=== PATIENT | male | born 2000 | race Caucasian/White ===

== ENCOUNTER 2021-08-02 10:00 | Emergency (ER) | payer OTHER, SELFPAY ==
[2021-08-02 10:15] VITALS: BP 135/67; PULSE 74; RESP 18; TEMP 36.7; O2SAT 100
--- NOTE | 2021-08-02 10:49 | ED.BACK ---
HPI - Back Pain/Injury General Chief Complaint: Back Pain/Injury Stated Complaint: Upper Back Pain Source: patient and RN notes reviewed Mode of arrival: ambulatory Limitations: no limitations History of Present Illness HPI Narrative: Will is a 20-year-old male patient who ambulated into the [facility] today. Patient states he has a history of lower back pain. Patient states it usually happens after running and doing repeats. Patient states over the last 2 days his left lower back has become tight and has increased pain when bending forward. Patient has not used any ice or heat at home. MD elicited complaint: back pain Related Data Home Medications Medication Instructions Recorded Confirmed No Home Medications 08/02/21 08/02/21 Allergies Allergy/AdvReac Type Severity Reaction Status Date / Time No Known Allergies Allergy Verified 08/02/21 10:24 Review of Systems Review of Systems: CONSTITUTIONAL: Denies body aches, fever, chills, or sweats. EYES: Denies visual changes, redness, or discharge. ENT: Denies rhinorrhea, congestion, sore throat, or otalgia. CARDIOVASCULAR: Denies chest pain, palpitations, or edema. RESPIRATORY: Denies cough or dyspnea. GASTROINTESTINAL: Denies abdominal pain, nausea, vomiting, or diarrhea. GENITOURINARY: Denies dysuria or hematuria. SKIN: Denies rash, itching, or wounds. MUSCULOSKELETAL: + back pain, denies joint pain, or myalgia. Patient has pain with flexion and extension. Patient has pain with palpation to the left lumbar area no vertebral point tenderness NEUROLOGIC: Denies headache, numbness, tingling, or weakness. PSYCH: Denies depression or anxiety. All systems reviewed & are unremarkable except as noted in HPI and below Exam Narrative: GENERAL: Well-appearing, well-nourished, and in no acute distress. HEAD: Normocephalic, atraumatic. EYES: EOMI. No redness or drainage. Conjunctivae normal. ENT: Mucous membranes pink and moist. Nares clear. No rhinorrhea. . NECK: Normal AROM. Supple. No lymphadenopathy. MUSCULOSKELETAL: No bony tenderness. There were no vertebral point tenderness. Patient has pain with palpation to the left lower lumbar area. EXTREMITIES: Normal range of motion. No edema. SKIN: Warm, dry, no rash. Capillary refill normal. Normal skin turgor. NEURO: No focal deficits. Alert and oriented x3. Gait steady. PSYCH: Normal affect. No signs of depression or anxiety. Course Vital Signs Vital signs: Vital Signs Temperature 36.7 C 08/02/21 10:15 Pulse Rate 74 08/02/21 10:15 Respiratory Rate 18 08/02/21 10:15 Blood Pressure 135/67 08/02/21 10:15 Pulse Oximetry 100 08/02/21 10:15 Temperature 36.7 C 08/02/21 10:15 Pulse Rate 74 08/02/21 10:15 Respiratory Rate 18 08/02/21 10:15 Blood Pressure 135/67 08/02/21 10:15 Pulse Oximetry 100 08/02/21 10:15 Reviewed. Pt has been instructed to follow up with her PCP regarding her elevated blood pressure today. MDM - Back Pain/Injury MDM Narrative Medical decision making narrative: Patient has pain to the lumbar area with palpation. No vertebral point tenderness. Patient has no numbness or tingling. Patient has full control of bowel and bladder. Differential Diagnosis Differential diagnosis: Likely lumbar radiculopathy, sciatica and strain of lumbar region Critical Care Time Critical Care Time Critical Care Time: No Discharge Plan Discharge Clinical Impression: Strain of lumbar region Qualifiers: Encounter type: initial encounter Qualified Code(s): S39.012A - Strain of muscle, fascia and tendon of lower back, initial encounter Patient Disposition: Home, Self-Care Condition: Stable Instructions: Antibiotic Form, Low Back Strain (ED) Additional Instructions: Use ice or heat to the area. May use [id number] muscle rubs. Follow-up with your primary care physician for increased pain or no improvement in 3 to 5 days. Go to the emergency depart
== END 2021-08-02 11:00 | disposition home or self-care (01) ==
PROVIDERS: Emergency Provider Nurse Practitioner Family
DX: S39.012A Strain of muscle, fascia and tendon of lower back, initial encounter (principal); X58.XXXA Exposure to other specified factors, initial encounter
CPT/HCPCS: 99213; G0463

== ENCOUNTER 2022-03-15 08:34 | Emergency (ER) | payer OTHER, SELFPAY ==
--- NOTE | ~2022-03-15 | CT_ITS ---
EXAMINATION: CT abdomen pelvis w con DATE: 03/15/2022 09:41 INDICATION: Right lower quadrant abdominal pain. TECHNIQUE: Computed tomography (CT) of the abdomen and pelvis was performed with 100 mL Omnipaque 300 intravenous contrast. Automated exposure control and iterative reconstruction technique were employe d. The dose-length product was 176.87 mGy-cm. COMPARISON: None. FINDINGS: The visualized portions of the lung bases are clear without pneumonia or pleural effusion. The heart size is normal. No pericardial effusion. The liver, gallbladder, spleen, pancreas, adrenal glands, and kidneys are normal. The appendix measures 8 mm in diameter. There is gas in the lumen of the appendix. There is wall thickening of the terminal ileum with surrounding fat stranding. There is mild ileocolic lymphadenopathy. There is trace pelvic ascites. The bones are unremarkable. IMPRESSION: 1. Terminal ileitis, which may be infection or Crohn disease. 2. Mild ileocolic lymphadenopathy, likely reactive. Reviewed, dictated and finalized at location B.
[2022-03-15 08:40] VITALS: BP 131/87; PULSE 81; RESP 16; TEMP 36.6; O2SAT 100
[2022-03-15 08:53] LABS: Basophils Absolute Auto 0.1 K/mm3 (0.0-0.1); Basophils Percent Auto 0.7 % (0.2-1.2); Eosinophils Absolute Auto 0.4 K/mm3 (0-0.3); Eosinophils Percent Auto 3.3 % (0-4.4); Hematocrit 39.5 % (42.0-52.0); Hemoglobin 13.1 g/dL (14.0-18.0); Immature Granulocyte Absolute 0.03 K/mm3 (0.00-0.031); Immature Granulocyte Percent A 0.2 % (0-0.5); Lymphocytes Percent Auto 9.9 % (18.3-44.2); Mean Corpuscular HGB Conc 33.2 g/dl (32-36); Mean Corpuscular Hemoglobin 28.7 pg (26-34); Mean Corpuscular Volume 86.4 fl (80-100); Mean Platelet Volume 9.8 fl (7.4-10.4); Monocytes Absolute Auto 1.2 K/mm3 (0.1-0.6); Monocytes Percent Auto 9.6 % (2.6-8.5); Neutrophils Absolute Auto 9.2 K/mm3 (1.3-6.7); Neutrophils Percent Auto 76.3 % (45.5-73.1); Platelet Count Result 366 k/mm3 (150-375); Red Blood Count 4.57 M/mm3 (4.6-6.20); Red Cell Distribution Width 12.4 % (11.5-14.5); White Blood Count 12.1 K/mm3 (4.5-10.0)
[2022-03-15 09:07] LABS: Alanine Aminotransferase 13 U/L (6-50); Albumin Level 4.1 g/dL (3.5-5.1); Alkaline Phosphatase 84 U/L (38-126); Anion Gap 6 mmol/L (8-16); Aspartate Amino Transferase 19 U/L (17-59); Bilirubin,Total 0.3 mg/dL (0.2-1.3); Blood Urea Nitrogen 9 mg/dL (9-20); Calcium 9.1 mg/dL (8.4-10.2); Carbon Dioxide 30 mmol/L (22-30); Chloride 101 mmol/L (98-107); Estimated CRCL calculation 109 ml/min; Estimated Glomerular Filt Rate > 60; Glucose 120 mg/dL (65-110); Lipase 62 U/L (23-300); Potassium 4.4 mmol/L (3.4-5.0); Sodium 137 mmol/L (137-145)
[2022-03-15] MEDS: SODIUM CHLORIDE 0.9% IV 1,000 ML 999 ML IV CONT (09:44)
--- NOTE | 2022-03-15 09:44 | ED.GENADULT ---
HPI - General Adult General Chief complaint: Abdominal Pain Stated complaint: diffuse abd pain Time Seen by Provider: 03/15/22 09:00 Source: patient Mode of arrival: ambulatory Limitations: no limitations History of Present Illness HPI narrative: 21-year-old male presents today with complaints of intermittent abdominal pain that started last but really got worse Sunday. Patient describes the pain as cramping in nature mostly to the umbilical region. But has noted some tenderness to the right lower quadrant nonetheless to the left lower quadrant. Patient denies fever, urinary complaints, has endorsed nausea, vomiting, and had diarrhea this morning but patient took a laxative yesterday because he thought he might be constipated. Denies history of abdominal surgery. Patient states alleviating factors lying on the side in position. Aggravating factors trying to get up and laying on back. Related Data Home Medications Medication Instructions Recorded Confirmed No Home Medications 08/02/21 03/15/22 Allergies Allergy/AdvReac Type Severity Reaction Status Date / Time No Known Allergies Allergy Verified 03/15/22 08:45 Review of Systems Review of Systems: CONSTITUTIONAL: Denies fever, chills, or sweats. EYES: Denies visual changes, redness, or discharge. ENT: Denies rhinorrhea, congestion, sore throat, or otalgia. CARDIOVASCULAR: Denies chest pain, palpitations, or edema. RESPIRATORY: Denies cough or dyspnea. GASTROINTESTINAL: Abdominal pain with nausea and intermittent vomiting. GENITOURINARY: Denies dysuria or hematuria. SKIN: Denies rash or itching. MUSCULOSKELETAL: Denies back pain, joint pain, or myalgia. NEUROLOGIC: Denies headache, numbness, dizziness, or weakness. PSYCHIATRIC: Denies anxiety or depression. Exam Narrative: GENERAL: Well-appearing, well-nourished, and in no acute distress. HEAD: Normocephalic, atraumatic. EYES: PERRLA and EOMI. ENT: Nares clear, no rhinorrhea or epistaxis. Mucous membranes moist. Oropharynx without tonsillar hypertrophy exudate or other lesions. Bilateral TMs pearly thomas nonbulging NECK: Supple. No adenopathy or masses. No carotid bruits or JVD CHEST: Clear to auscultation. No respiratory distress. No wheezes rales or rhonchi HEART: Regular rate and rhythm. No murmur heard. Normal peripheral pulses. ABDOMEN: Positive McBurney sign, negative for rebound tenderness, abdomen is soft, nondistended, normal active bowel sounds. EXTREMITIES: Normal range of motion. No edema. SKIN: Warm, dry, no rash. NEURO: No focal deficits. Alert and oriented x3. PSYCH: Normal mood and affect. Course Course Emergency Course: Patient aware labs and CT results. Patient aware of need for follow-up with GI and possible further work-up. Patient in agreement with plan of care and ready for discharge. Consultations Consultation #1: Dr Delgado called (GI). Patient to follow up as outpatient. Date: 03/15/22 Time: 11:31 Vital Signs Vital signs: Vital Signs Temperature 36.6 C 03/15/22 08:40 Pulse Rate 81 03/15/22 08:40 Respiratory Rate 16 03/15/22 08:40 Blood Pressure 131/87 03/15/22 08:40 Pulse Oximetry 100 03/15/22 08:40 Oxygen Delivery Room Air 03/15/22 08:40 Temperature 36.6 C 03/15/22 08:40 Pulse Rate 77 03/15/22 11:43 Respiratory Rate 18 03/15/22 11:43 Blood Pressure 115/75 03/15/22 11:43 Pulse Oximetry 100 03/15/22 11:43 Oxygen Delivery Room Air 03/15/22 08:40 Medical Decision Making MDM Narrative Medical decision making narrative: 21-year-old male HPI as noted. White count 12.1 hemoglobin 13.1 sodium 137 potassium 4.4 GFR greater than 60 and urine without signs of infection. Patient afebrile, BP 115/75, pulse 77, respiratory rate 18, O2 sat 100% on room air. No signs of infection/sepsis. CT shows terminal ileitis infection versus Crohn's. Further work-up needed by GI. Patient currently stable plan to follow-up with GI
[2022-03-15 09:54] LABS: Appearance Urine Clear (Clear); Bilirubin Urine Negative (Negative); Blood Urine Negative (Negative); Color Urine Yellow (Yellow); Glucose Urine UA Negative (Negative); Ketones Urine Negative (Negative); Leukocyte Esterase Ur Negative LEU/UL (Negative); Nitrate Urine Negative (Negative); Protein Urine Negative (Negative); Urobilinogen Urine 0.2 mg/dL (<2.0); pH Urine 8.5 (5.0-9.0)
[2022-03-15 10:23] LABS: Add Urine Microscopic? NO
[2022-03-15 11:43] VITALS: BP 115/75; PULSE 77; RESP 18; O2SAT 100
== END 2022-03-15 11:44 | disposition home or self-care (01) ==
PROVIDERS: Emergency Medicine; Emergency Provider Nurse Practitioner Family
DX: R10.9 Unspecified abdominal pain (principal); K50.00 Crohn's disease of small intestine without complications
CPT/HCPCS: 36415; 74177; 80053; 81003; 83690; 85025; 96360; 99284; J7030; Q9967

== ENCOUNTER 2022-03-16 09:53 | Outpatient (CLI) | payer OTHER, SELFPAY ==
[2022-03-16 10:09] LABS: Hematocrit 36.8 % (42.0-52.0); Hemoglobin 12.4 g/dL (14.0-18.0); Mean Corpuscular HGB Conc 33.7 g/dl (32-36); Mean Corpuscular Hemoglobin 29.2 pg (26-34); Mean Corpuscular Volume 86.6 fl (80-100); Mean Platelet Volume 9.6 fl (7.4-10.4); Platelet Count Result 366 k/mm3 (150-375); Red Blood Count 4.25 M/mm3 (4.6-6.20); Red Cell Distribution Width 12.3 % (11.5-14.5); White Blood Count 10.7 K/mm3 (4.5-10.0)
[2022-03-16 10:24] LABS: Alanine Aminotransferase 12 U/L (6-50); Albumin Level 3.9 g/dL (3.5-5.1); Alkaline Phosphatase 78 U/L (38-126); Anion Gap 8 mmol/L (8-16); Aspartate Amino Transferase 16 U/L (17-59); Bilirubin,Total 0.2 mg/dL (0.2-1.3); Blood Urea Nitrogen 8 mg/dL (9-20); CRP 5.4 mg/dL (<1.0); Calcium 8.8 mg/dL (8.4-10.2); Carbon Dioxide 27 mmol/L (22-30); Chloride 103 mmol/L (98-107); Estimated Glomerular Filt Rate > 60; Glucose 114 mg/dL (65-110); Potassium 4.1 mmol/L (3.4-5.0); Sodium 138 mmol/L (137-145)
[2022-03-16 10:51] LABS: Iron 35 ug/dL (49-181)
[2022-03-16 10:57] LABS: Erythrocyte Sedimentation Rate 50 mm/hr (0-20)
[2022-03-16 11:01] LABS: Percent Iron Saturation 15 % (20-50)
[2022-03-16 11:26] LABS: Folic Acid 5.1 ng/mL (2.76->20)
[2022-03-16 22:32] LABS: Toxigenic C. Diff NEGATIVE (NEGATIVE)
[2022-03-21 21:05] LABS: Calprotectin, Stool 2710 mcg/g
== END 2022-03-16 09:54 | disposition home or self-care (01) ==
PROVIDERS: Visit Provider Nurse Practitioner
DX: D64.9 Anemia, unspecified (principal); R10.31 Right lower quadrant pain; R93.3 Abnormal findings on diagnostic imaging of other parts of digestive tract; K50.00 Crohn's disease of small intestine without complications
CPT/HCPCS: 36415; 80053; 82607; 82728; 82746; 83540; 83550; 83993; 85027; 85652; 86140; 87045; 87177; 87209; 87427; 87493

== ENCOUNTER 2022-03-24 21:01 | Emergency (ER) | payer OTHER, SELFPAY ==
--- NOTE | ~2022-03-24 | CT_ITS ---
EXAMINATION: CT abdomen pelvis w con INDICATION: Right lower quadrant pain TECHNIQUE: Computed tomographic images of the abdomen and pelvis were obtained after the administrati on of 100 cc of Omnipaque 300 intravenous contrast. The dose-length product (DLP) was 197.80 mGy-cm. Automated exposure control and iterative reconstruction technique were employed. COMPARISON: 03/15/2022 FINDINGS: The lung bases are clear. The heart size is normal. The liver, spleen, pancreas, gallbladde r, and adrenal glands are normal. The kidneys are unremarkable. Again seen are wall thickening and mu cosal enhancement of the terminal ileum without significant change the visualized osseous structures are unremarkable.. There are additional short segments of circumferential wall thickening and mucosal enhancement (skip lesions) of the terminal ileum. The appendix is normal. There is no free intraperi toneal gas. IMPRESSION: 1. Terminal ileitis without significant change, consistent with Crohn disease or possibly infection. Reviewed, dictated and finalized at location F. IMPRESSION: 1. Terminal ileitis without significant change, consistent with Crohn disease o r possibly infection.
[2022-03-24 21:04] VITALS: BP 132/78; PULSE 94; RESP 18; TEMP 37.3; O2SAT 100
--- NOTE | 2022-03-24 21:26 | ED.ABDPAIN ---
HPI - Abdominal Pain General Chief Complaint: Abdominal Pain Stated Complaint: abd pain Time Seen by Provider: 03/24/22 21:15 History of Present Illness HPI narrative: Patient is a 19-year-old male here for evaluation of intermittent, crampy lower abdominal pain 10 days. The pain is not worse after eating and is relieved by the position. Reports nausea and low grade fevers but no vomiting. He had a loose stool this morning but does note intermittent issues with constipation since the pain developed. Patient was evaluated in the ED upon symptom onset and was found to have terminal ileitis on his CT scan. He followed-up with GI in clinic and was found to have elevated fecal calprotectin levels. Patient was put on Cipro and Flagyl for the symptoms with good improvement. Unfortunately, he developed a rash after starting these antibiotics so he stopped them 2 days ago. The pain returned today. He has not yet scheduled his colonoscopy. Denies blood in stool, weight changes, headaches, rashes, other complaints. Related Data Allergies Allergy/AdvReac Type Severity Reaction Status Date / Time No Known Allergies Allergy Verified 03/24/22 21:19 Review of Systems Review of Systems: Gen.: Reports fevers. Denies chills Eyes: Denies eye pain or visual change ENT: Denies congestion Respiratory: Denies shortness of breath or cough CV: Denies chest pain or palpitations GI: Reports abdominal pain, nausea, diarrhea. Denies emesis denies burning, urgency, frequency or hematuria Musculoskeletal: Denies back pain or muscle pain Neuro: Denies numbness, tingling, weakness or focal weakness Skin: Denies rash Except as documented, all other systems reviewed and negative [facility] Past Medical History Medical History Abnormal digestive system diagnostic imaging Normocytic anemia RLQ abdominal pain Terminal ileitis of small intestine Social History Social History Smoking status: Current every day smoker (vapes) Exam Narrative: APPEARANCE: No acute distress, nontoxic, resting in bed EYES: EOMI HEENT: Normocephalic, atraumatic, OMM RESPIRATORY: No respiratory distress Clear to auscultation bilaterally with no rhonchi wheezing or rales. CARDIOVASCULAR: Regular rate and rhythm without murmurs rubs or gallops. ABDOMINAL: Hyperactive bowel sounds. Tender to palpation in RLQ. No rebound or guarding MUSCULOSKELETAL: Moves all extremities. No clubbing, cyanosis or edema. NEURO: Awake and alert. Following commands, speech normal, no focal deficits SKIN: Warm, dry. No rashes lesions or abrasions PSYCHIATRIC: Normal affect/mood Course Vital Signs Vital signs: Vital Signs Temperature 99.1 F 03/24/22 21:04 Pulse Rate 94 03/24/22 21:04 Respiratory Rate 18 03/24/22 21:04 Blood Pressure 132/78 03/24/22 21:04 Pulse Oximetry 100 03/24/22 21:04 Oxygen Delivery Room Air 03/24/22 21:04 Temperature 99.1 F 03/24/22 21:04 Pulse Rate 87 03/24/22 23:25 Respiratory Rate 18 03/24/22 23:25 Blood Pressure 114/77 03/24/22 23:25 Pulse Oximetry 99 03/24/22 23:25 Oxygen Delivery Room Air 03/24/22 21:04 MDM - Abdominal Pain MDM Narrative Medical decision making narrative: 21 year old male here for evaluation of rlq crampy abdominal pain, diarrhea and low grade fevers at home. Patient being worked up for IBD as outpatient given findings of terminal ileitus on old CT scan and leukocytosis. Fecal calprotectin was elevated; pt has not yet had colonoscopy. Workup today significant for leukocytosis to 15.4, h/h12.7/38.2, repeat imaging today again with evidence of terminal ileitis. Patient's pain improved after morphine, zofran and fluids in the ED. Discussed case with Dr. Ohara (GI), who recommended steroid taper and bentyl until he can see GI as outpatient. Patient agreeable to plan. Lab Data Result
[2022-03-24 21:38] LABS: Basophils Absolute Auto 0.1 K/mm3 (0.0-0.1); Basophils Percent Auto 0.4 % (0.2-1.2); Eosinophils Absolute Auto 0.7 K/mm3 (0-0.3); Eosinophils Percent Auto 4.4 % (0-4.4); Hematocrit 38.2 % (42.0-52.0); Hemoglobin 12.7 g/dL (14.0-18.0); Immature Granulocyte Absolute 0.05 K/mm3 (0.00-0.031); Immature Granulocyte Percent A 0.3 % (0-0.5); Lymphocytes Absolute Auto 2.05 K/mm3 (0.9-3.2); Lymphocytes Percent Auto 13.3 % (18.3-44.2); Mean Corpuscular HGB Conc 33.2 g/dl (32-36); Mean Corpuscular Hemoglobin 28.7 pg (26-34); Mean Corpuscular Volume 86.2 fl (80-100); Mean Platelet Volume 9.6 fl (7.4-10.4); Monocytes Absolute Auto 1.8 K/mm3 (0.1-0.6); Monocytes Percent Auto 11.4 % (2.6-8.5); Neutrophils Absolute Auto 10.8 K/mm3 (1.3-6.7); Neutrophils Percent Auto 70.2 % (45.5-73.1); Platelet Count Result 398 k/mm3 (150-375); Red Blood Count 4.43 M/mm3 (4.6-6.20); Red Cell Distribution Width 12.4 % (11.5-14.5); White Blood Count 15.4 K/mm3 (4.5-10.0)
[2022-03-24 21:45] LABS: Appearance Urine Cloudy (Clear); Bilirubin Urine Negative (Negative); Blood Urine Negative (Negative); Glucose Urine UA Negative (Negative); Ketones Urine Negative (Negative); Leukocyte Esterase Ur Negative LEU/UL (Negative); Nitrate Urine Negative (Negative); Protein Urine Negative (Negative); Urobilinogen Urine 0.2 mg/dL (<2.0); pH Urine 8.5 (5.0-9.0)
[2022-03-24 21:46] LABS: Add Urine Microscopic? YES; Color Urine Light Yellow (Yellow)
[2022-03-24 21:49] LABS: Alanine Aminotransferase 11 U/L (6-50); Albumin Level 4.1 g/dL (3.5-5.1); Alkaline Phosphatase 72 U/L (38-126); Anion Gap 5 mmol/L (8-16); Aspartate Amino Transferase 24 U/L (17-59); Bilirubin,Total 0.1 mg/dL (0.2-1.3); Blood Urea Nitrogen 13 mg/dL (9-20); Calcium 8.8 mg/dL (8.4-10.2); Carbon Dioxide 28 mmol/L (22-30); Chloride 103 mmol/L (98-107); Estimated CRCL calculation 94 ml/min; Estimated Glomerular Filt Rate > 60; Glucose 109 mg/dL (65-110); Lipase 56 U/L (23-300); Potassium 3.9 mmol/L (3.4-5.0); Sodium 136 mmol/L (137-145)
[2022-03-24] MEDS: ONDANSETRON INJ 4 MG/2 ML VIAL IV PUSH (21:53)
[2022-03-24] MEDS: SODIUM CHLORIDE 0.9% IV 1,000 ML 999 ML IV CONT (21:53)
[2022-03-24] MEDS: MORPHINE SULFATE (*CRX) 4 MG/ML INJ IV PUSH (21:55)
[2022-03-24 21:57] VITALS: BP 121/81; PULSE 91; O2SAT 100
[2022-03-24 21:57] LABS: Amorphous Sediment Urine Few; Bacteria Urine Trace /hpf; RBC Urine 0-2 /hpf (0-2); WBC Urine 0-3 /hpf
[2022-03-24 23:25] VITALS: BP 114/77; PULSE 87; RESP 18; O2SAT 99
== END 2022-03-24 23:25 | disposition home or self-care (01) ==
PROVIDERS: Emergency Provider Emergency Medicine
DX: K50.00 Crohn's disease of small intestine without complications (principal); D64.9 Anemia, unspecified; F17.290 Nicotine dependence, other tobacco product, uncomplicated
CPT/HCPCS: 36415; 74177; 80053; 81001; 83690; 85025; 96361; 96374; 96375; 99284; J2270; J2405; J7030; Q9967